=== PATIENT | male | born 1960 | race Caucasian/White ===

== ENCOUNTER 2023-07-10 03:59 | Emergency (ER) | payer OTHER, BC, SELFPAY ==
--- NOTE | ~2023-07-10 | XR_ITS ---
EXAMINATION: XR HIP, RIGHT CLINICAL INFORMATION: Blunt injury. COMPARISON: None available. TECHNIQUE: AP pelvis, lateral right hip, AP right hip. FINDINGS: No fractures or acute appearing subluxations noted. Mild subchondral sclerosis of the superior margin the right acetabulum and mild superior joint space narrowing. The sacroiliac joints and symphysis pubis are normal in appearance. Two 3 mm well-corticated ossific bodies are present along the lateral margin of the acetabular rim of the right hip and may represent chronic dystrophic ossification. XR/XR hip RT w [id number] IMPRESSION: *No acute abnormalities. No fractures or acute subluxations.
[2023-07-10 04:02] VITALS: BP 145/87; PULSE 86; RESP 19; TEMP 36.2; O2SAT 96; BMI 29.3
--- NOTE | 2023-07-10 04:40 | PC.NURSE ---
pt arrived via triage, pt reported he works at [employer] and he injured his right thigh after a box hit him in the leg on Friday, pt reported increased pain and swelling difficulty walking
--- NOTE | 2023-07-10 05:41 | ED_ITS ---
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 while unloading heavy box hit him on the lateral aspect of the right thigh since then been having pain limping unable to put pressure on his right leg because of pain no other injuries Related Data Previous Rx's ?Medication ?Instructions ?Recorded cyclobenzaprine 10 mg tablet 10 mg PO Q8H #20 tabs 07/10/23 ibuprofen 600 mg tablet 600 mg PO Q6H PRN fever or pain 07/10/23 #30 tabs Allergies Allergy/AdvReac Type Severity Reaction Status Date / Time Penicillins Allergy Hives Verified 07/10/23 04:03 Review of Systems 2 Review of Systems: Yes all other systems are reviewed and are negative PMFSH Social History Social History Advance Directives: No Advance Directives Information Provided: No Do you have a plan to hurt others: No Plan Physical Exam 2 Vital Signs: Vital Signs: Last Vital Signs Temp 97.1 F 07/10/23 04:02 Pulse 86 07/10/23 04:02 Resp 19 07/10/23 04:02 BP 145/87 H 07/10/23 04:02 Pulse Ox 96 07/10/23 04:02 O2 Del Method Room Air 07/10/23 04:02 BMI result Body Mass Index 29.3 Appearance: Alert. Oriented X3. No acute distress. ENT: Pharynx normal. Oral Mucosa moist Neck: Normal inspection. Neck supple. CVS: Normal heart rate and rhythm. Pulses normal. Respiratory: No respiratory distress. Equal air entry bilateral, no wheezing/rales/rhonchi Skin: Skin warm and dry. Normal skin color. Normal skin turgor. Extremities: No lower extremity edema. Neuro: Oriented X 3. Extrem: Upper/lower leg/hip images: 1. Tenderness at right greater trochanteric area no bruising no deformity 2. Tenderness at sciatic notch area SLR negative Medical Decision Making Medical Decision Making MDM Narrative: Patient with contusion to the right hip x-ray showed possible hairline fracture of the greater trochanteric area likely the cause for the pain patient also has pain in the piriformis muscle will give ibuprofen and Flexeril Independent Interpretation I performed an independent interpretation of an: Plain X-Ray Discharge Plan Discharge Clinical Impression: Contusion of right hip Patient Disposition: Still a Patient Instructions: Hip Contusion (ED) Additional Instructions: Rest your right leg Apply ice take pain medication as prescribed Prescriptions: New ibuprofen 600 mg tablet 600 mg PO Q6H PRN (Reason: fever or pain) Qty: 30 0RF cyclobenzaprine 10 mg tablet 10 mg PO Q8H Qty: 20 0RF Stand Alone Forms: Work/School Release Print Language: Vietnamese
[2023-07-10 07:29] VITALS: BP 143/90; PULSE 81; RESP 17; O2SAT 98
--- NOTE | 2023-07-10 07:59 | PC.NURSE ---
patient ambulated with steady gait to the bathroom.
== END 2023-07-10 08:32 | disposition home or self-care (01) ==
PROVIDERS: Emergency Provider Internal Medicine; PCP Internal Medicine
DX: S70.01XA Contusion of right hip, initial encounter (principal); W22.8XXA Striking against or struck by other objects, initial encounter; Y93.9 Activity, unspecified; Y92.9 Unspecified place or not applicable; Y99.0 Civilian activity done for income or pay
CPT/HCPCS: 73502; 99283